=== PATIENT | female | born 1975 | race Caucasian/White ===

== ENCOUNTER 2017-11-28 12:38 | Emergency (ER) | payer OTHER ==
--- NOTE | 2017-11-28 12:47 | PDOC ---
History of Present Illness - General Chief Complaint: Pain Stated Complaint: NECK PAIN Time Seen by Provider: 11/28/17 12:44 - History of Present Illness Initial Comments: 11/28/17 13:03 The patient is a 42 year old female with no significant PMH who presents for evaluation of neck pain/upper back pain. The patient notes that she was lying in bed 2 days ago when she rolled and felt a sharp pain in her upper back with radiation down her left arm. She notes that she went to an urgent care to be evaluated and was prescribed flexiril and ibuprofen, but notes minimal improvement with those medications prompting her presentation to the ED for further evaluation. She describes the pain as a dull ache down her left arm that worsens with movement of her left arm and associated with some numbness and tingling. She denies any weakness and otherwise denies fevers, chills, headache, SOB, chest pain, nausea, vomiting, abdominal pain, or changes with urination or bowel movements. Past History - Past Medical History Allergies/Adverse Reactions: Allergies Allergy/AdvReac Type Severity Reaction Status Date / Time No Known Allergies Allergy Verified 11/28/17 12:40 Home Medications: Ambulatory Orders Cyclobenzaprine HCl [Flexeril 10 mg] 10 mg PO TID PRN 11/28/17 Diazepam [Valium] 2 mg PO DAILY #7 tablet MDD 1 11/28/17 Ibuprofen 800 mg PO TID PRN 11/28/17 Naproxen [Naprosyn -] 500 mg PO BID #14 tablet 11/28/17 COPD: No Other medical history: DENIES - Suicide/Smoking/Psychosocial Hx Smoking History: Never smoked Have you smoked in the past 12 months: No Review of Systems - Review of Systems Comments:: 11/28/17 13:06 Constitutional: No fevers, chills, fatigue, malaise HEENT: No Rhinorrhea, nasal congestion, visual changes Cardiovascular: No chest pain, syncope, palpitations, lightheadedness Respiratory: No Cough, SOB, Hemoptysis, Gastrointestinal: No Abdominal pain, Nausea, Vomiting, Constipation, Diarrhea, Melena Genitourinary: No Dysuria, Frequency, Urgency, Hesitancy, Hematuria, Flank pain Musculoskeletal: Upper back pain. No Myalgia, arthralgia Skin: No rashes, itching, bruising, pallor Neurologic: Left arm numbness/tingling. No Headache, Dizziness, Weakness, Psychiatric: No Hallucinations. No SI or HI *Physical Exam - Physical Exam Comments: 11/28/17 13:07 General Appearance: Nourished. No Apparent Distress HEENT: EOMI, GRETCHEN. No Pharyngeal Erythema, Tonsillar Exudate, Tonsillar Erythema Neck: No Cervical Lymphadenopathy Respiratory/Chest: Lungs Clear, Normal Breath Sounds. No Crackles, Rales, Rhonchi, Wheezing Cardiovascular: Regular Rhythm, Regular Rate. No Murmur, Gallops, Rubs Gastrointestinal/Abdominal: Normal Bowel Sounds, Soft. No Guarding, Rebound, Tenderness Musculoskeletal: Reproducible tenderness to palpation along the left upper back. No CVA Tenderness Extremity: Normal Capillary Refill Integumentary: Normal Color, Dry, Warm Neurologic: apartment rental agent II-XII NML intact, Fully Oriented, Alert, Normal Mood/Affect, Normal Response, Motor Strength 5/5. Medical Decision Making - Medical Decision Making 11/28/17 13:15 The patient is a 42 year old female with no significant PMH who presents for evaluation of neck pain/upper back pain. Given the patient's history and physical exam, it is possible her symptoms are due to musculoskeletal strain vs. neuropathy. It is likely her symptoms are due to a neuropathy given the distribution of her symptoms. We are comfortable discharging the patient home on valium and alieve with orthospine follow up. We discussed the plan and return precautions with the patient who voiced understanding and is agreeable with the plan. *DC/Admit/Observation/Transfer Diagnosis at time of Disposition: Radiculopathy Qualifiers: Spinal region: unspecified Qualified Code(s): M54.10 - Radiculopathy, site unspecified - Discharge Dispostion Disposition: HOME Condition at time of disposition: Stable Decision to Admit order: No - Prescriptions Prescriptions: Diazepam [Valium] 2 mg PO DAILY #7 tablet MDD 1 Naproxen [Naprosyn -] 500 mg PO BID #14 tablet - Referrals Referrals: Kristian Pollard MD, [facility] [Staff Physician] - OhRony MD [Staff Physician] - - Patient Instructions Printed Discharge Instructions: DI for Cervical Radiculopathy Additional Instructions: Please return to the ER if you experience concerning or worsening symptoms including worsening pain, headache, chest pain, or difficulty breathing. Please switch your flexiril to valium and your ibuprofen to aleive. Please continue to rest the arm and refrain from heavy lifting. Please call to schedule a follow up appointment with our Orthopedic surgeon or neurosurgeon within 2-3 days to discuss your ER visit and further management of your symptoms. - Post Discharge Activity
--- NOTE | 2017-11-28 12:51 | PDOC ---
Attending Attestation - Resident Resident Name: MarthaMatthew - ED Attending Attestation I have performed the following: I have examined & evaluated the patient, The case was reviewed & discussed with the resident, I agree w/resident's findings & plan, Exceptions are as noted - HPI HPI: 11/28/17 18:50 The patient is a 42 year old female with no significant PMH who presents for evaluation of neck pain/upper back pain. The patient notes that she was lying in bed 2 days ago when she rolled and felt a sharp pain in her upper back with radiation down her left arm. She notes that she went to an urgent care to be evaluated and was prescribed flexiril and ibuprofen, but notes minimal improvement with those medications prompting her presentation to the ED for further evaluation. Patient states she has had intermittent tingling in her left index finger from time to time. She describes the pain as a dull ache down her left arm that worsens with movement of her left arm and associated with some numbness and tingling. She denies any weakness and otherwise denies fevers , chills, headache, SOB, chest pain, nausea, vomiting, abdominal pain, or changes with urination or bowel movement - Physicial Exam PE: 11/28/17 Reviewed Residents PE. NVI. Slight decreased sensation to thumb and index finger left hand. Mild paraspinal ttp c6/7 left neck - Medical Decision Making 11/28/17 18:53 History examination consistent with C6-C7 cervical radiculopathy No acute worrisome historical findings or physical exam findings Patient's medications changed from ibuprofen and Flexeril to Valium and Aleve She was provided with orthopedic follow-up. Findings, the need for follow-up and strict return instructions discussed with patient.
[2017-11-28 13:25] VITALS: BP 128/68; PULSE 54; TEMP 98.3; BMI 24.9
== END 2017-11-28 13:45 | disposition home or self-care (01) ==
LOC: FER 12:38
DX: M54.10 Radiculopathy, site unspecified (principal)
CPT/HCPCS: 99283-25